=== PATIENT | female | born 1975 | race American Indian/Alaskan Native ===

== ENCOUNTER 2018-04-27 08:25 | Day surgery (SDC) | payer MEDICAID ==
[2018-04-27] MEDS ORDERED: NACL 0.9% 500 ML 500 ML IV SCH (09:00)
[2018-04-27] MEDS ORDERED: PLAVIX ONE (09:04)
[2018-04-27] MEDS ORDERED: PLAVIX PO SCH (09:28)
[2018-04-27 09:49] LABS: BUN/Creatinine Ratio 9; Blood Urea Nitrogen 6 mg/dL (7-17); Calcium 8.4 mg/dL (8.4-10.2); Hemolysis Index 62
[2018-04-27] MEDS ORDERED: HEPARIN/NS 5000 UNIT/500ML(CATH LAB) 1,000 ML IR ONE (10:37)
[2018-04-27] MEDS: SUBLIMAZE ONE ×3 (11:19→11:36)
[2018-04-27] MEDS: XYLOCAINE 2% INFILTRATI ONE ×2 (11:19→11:36)
[2018-04-27] MEDS: VERSED ONE ×3 (11:19→11:36)
[2018-04-27] MEDS: CALAN ONE ×2 (11:20→11:36)
[2018-04-27] MEDS: HEPARIN 10,000 UNITS/10 ML ONE ×2 (11:20→11:36)
[2018-04-27] MEDS: NITROGLYCERIN SYRINGE 3 ML ONE ×2 (11:21→11:36)
--- NOTE | 2018-04-27 11:54 | Short Stay Summary ---
Short Stay Documentation Date of service: 04/27/18 - History H&P: obtained from office - Allergies and Medications Current Medications: Allergies aspirin Allergy (Unverified 04/27/18 08:27) Shortness of Breath,ITCHING, SWELLING mushroom Allergy (Unverified 04/27/18 08:27) Itching,SWELLING, SHORTNESS OF BREATH Home Medications Medication Instructions Recorded Confirmed Last Taken Type AtorvaSTATin [Lipitor] 40 mg PO QHS 04/27/18 04/27/18 04/26/18 History Bumetanide [Bumex 1 mg tab] 1 mg PO BID 04/27/18 04/27/18 04/26/18 History Insulin Glargine,Hum.rec.anlog 40 unit SQ QHS 04/27/18 04/27/18 04/26/18 History [Basaglar Kwikpen U-100] Insulin Regular, Human [Novolin R] 0 unit SQ TIDWM 04/27/18 04/27/18 04/26/18 History glyBURIDE [Glyburide] 5 mg PO DAILY 04/27/18 04/27/18 04/26/18 History Active Medications Clopidogrel Bisulfate (Plavix) 75 mg PO NOW MISA Sodium Chloride (Nacl 0.9% 500 Ml) 500 mls @ 50 mls/hr IV DIRECT MISA Stop: 04/27/18 18:59 Last Admin: 04/27/18 11:21 Dose: 100 mls Documented by: - Brief post op/procedure progress note Date of procedure: 04/27/18 Pre-op diagnosis: SOB Post-op diagnosis: same Procedure: [facility] - see dictated cath report Anesthesia: local Estimated blood loss: none Condition: stable - Disposition Condition at discharge: Good Disposition: DC-01 TO HOME OR SELFCARE - Discharge Diagnoses (1) SOB (shortness of breath) Status: Chronic (2) Obesity Status: Chronic (3) Normal coronary arteries Status: Chronic Short Stay Discharge Plan Activity: advance as tolerated Wound: open to air, keep clean and dry, per your surgeon's advice Follow up with: SCOTT IRWIN NP-C [Primary Care Provider] - 7 Days
[2018-04-27] MEDS ORDERED: TORADOL IV ONE (12:31)
--- NOTE | 2018-04-27 13:01 | Cardiac Catherization Report ---
PROCEDURE: Left heart catheterization. ORDERING PHYSICIAN: Dr. Bruno. CLINICAL INFORMATION: 1. The patient is a 42-year-old female with abnormal stress test with anterior wall mild ischemia with shortness of breath with exertion, is here for left heart catheterization done under moderate sedation. Eleven minutes of supervised moderate sedation, started 11:36 a.m., finished 11:47 a.m., 1 mg Versed and 50 mcg fentanyl. 2. Left heart catheterization performed in the right radial artery, sterile technique, local anesthesia, 6-[place] radial sheath inserted. 3. Left system engaged with JL3.5 catheter. Left main is large and patent, bifurcates into large LAD, is patent from proximally and distally with mild tortuosity. Diagonal 1 and diagonal 2 are medium caliber vessel, patent with mild tortuosity. Circumflex is a large vessel that is patent from proximally and distally. OM1 and OM2 are medium caliber vessels that are patent with moderate tortuosity. RCA engaged with an AR mod catheter, is a large caliber dominant vessel, moderate tortuosity, it is patent from proximally and distally. PDA is a medium caliber vessel that is patent. LV gram done in MALTESE and ARGUETA view shows normal LV function, LVEDP of 22 mmHg, LV is 125/22, aortic is 119/83. No gradient across the aortic valve on pullback. 5-[place] catheters were all taken over guidewire, 6-[place] radial sheath was discontinued. Radial band applied. No hematoma, no bleeding. SUMMARY: 1. Normal coronaries, large epicardial vessels, right dominant vessel with moderate to severe tortuosity of vessels. 2. Normal left ventricular function, LVEDP of 22 mmHg, EF 55%-60%. 3. Continue risk factor modification and discussed this in detail with the patient. JOB# [id number] LUCY/TONY
[2018-04-27 14:42] VITALS: BP 120/75
== END 2018-04-27 15:10 | disposition home or self-care (01) ==
LOC: CATHLABREC 08:25
PROVIDERS: ATTEND Internal Medicine
DX: R06.02 Shortness of breath (principal); R94.39 Abnormal result of other cardiovascular function study; F17.210 Nicotine dependence, cigarettes, uncomplicated; E78.00 Pure hypercholesterolemia, unspecified; I10 Essential (primary) hypertension; G47.33 Obstructive sleep apnea (adult) (pediatric); M19.90 Unspecified osteoarthritis, unspecified site; E66.9 Obesity, unspecified; Z68.41 Body mass index [BMI] 40.0-44.9, adult; Z88.6 Allergy status to analgesic agent; Z79.899 Other long term (current) drug therapy; Z79.84 Long term (current) use of oral hypoglycemic drugs; Z91.018 Allergy to other foods; Z98.890 Other specified postprocedural states
CPT/HCPCS: 36415; 80048; 93005; 93010; 93458; 99156; C1894; J1644; J1885; J2250; J3010; J7040; Q9967